=== PATIENT | female | born 1970 | race Caucasian/White ===

== ENCOUNTER → 2018-10-15 | Outpatient (CLI) | payer OTHER, SELFPAY | END | disposition home or self-care (01) | LOC: PSN 09:00 | PROVIDERS: Family Provider Internal Medicine; PCP Internal Medicine; Referring Provider Internal Medicine; Visit Provider Internal Medicine | DX: R00.2 Palpitations (principal) | CPT/HCPCS: 93225; 93226 ==

== ENCOUNTER → 2018-11-10 | Outpatient (CLI) | payer OTHER, SELFPAY ==
[2018-10-27 10:57] VITALS: BMI 18.9
--- NOTE | 2018-11-10 14:59 | ECHOD_ITS ---
Reason For Study: atrial tachycardia Procedure This was a 2D Doppler, Color Flow transthoracic echocardiogram. Exam performed in department. Left Ventricle Normal size and thickness. The estimated ejection fraction is 60 %. No evidence for diastolic dysfunction. No regional wall motion abnormalities noted. Right Ventricle Normal RV size. Normal systolic function. Atria Normal left atrium. Normal right atrium. Mitral Valve There is no mitral valve stenosis. Trivial mitral valve insufficiency. Tricuspid Valve There is no tricuspid stenosis. Trivial tricuspid valve insufficiency. Normal pulmonary artery pressure. Aortic Valve Trisinus/trileaflet aortic valve. There is no aortic stenosis. No aortic valve insufficiency. Pulmonic Valve There is no pulmonic valvular stenosis. No pulmonic valve insufficiency. Great Vessels Normal aortic root. Pericardium/Pleural No pericardial effusion. MMode/2D Measurements & Calculations LVIDd: 4.1 cm IVSd: 0.78 cm Ao root diam: 3.0 cm LVIDs: 1.9 cm LVPWd: 0.83 cm RVDd: 2.9 cm FS: 53.6 % LAV(MOD-bp): 33.5 ml LA A4 area: 15.4 cm2 LA dimension(2D): 2.9 cm LAV(MOD-bp) Indexed: 21.4 ml/m2 LAV(MOD-sp2): 23.9 ml LAV(MOD-sp4): 43.3 ml RA A4 area: 12.3 cm2 Doppler Measurements & Calculations MV E max gumaro: 113.3 cm/sec Lat Peak E' Gumaro: 12.0 cm/sec Med Peak E' Gumaro: 11.3 cm/sec MV A max gumaro: 66.4 cm/sec E/E' lat: 9.4 E/E' med: 10.0 MV E/A: 1.7 Ao V2 max: 122.2 cm/sec LV V1 max: 106.7 cm/sec PA V2 max: 110.6 cm/sec Ao max P.0 mmHg LV V1 max P.6 mmHg TR max gumaro: 198.9 cm/sec TR max P.8 mmHg Interpretation Summary The estimated ejection fraction is 60 %. No evidence for diastolic dysfunction. Ordering Physician: Sina West Referring Physician: Samantha Simons M.D. Performed By: Larisa Gibbons RDCS
== END | disposition home or self-care (01) ==
LOC: CVS 14:58
PROVIDERS: Family Provider Internal Medicine; PCP Internal Medicine; Referring Provider Specialist; Visit Provider Specialist
DX: R00.2 Palpitations (principal)
CPT/HCPCS: 93306

== ENCOUNTER → 2018-12-31 | Outpatient (CLI) | payer OTHER, SELFPAY ==
[2018-11-23 10:54] VITALS: BMI 19.1
== END | disposition home or self-care (01) ==
LOC: PSN 08:37
PROVIDERS: Family Provider Internal Medicine; PCP Internal Medicine; Referring Provider Nurse Practitioner Family; Visit Provider Nurse Practitioner Family
DX: R00.2 Palpitations (principal)
CPT/HCPCS: 93225; 93226

== ENCOUNTER → 2020-12-18 07:12 | Outpatient (CLI) | payer OTHER, SELFPAY ==
[2020-12-07 08:17] VITALS: BMI 19.1
--- NOTE | 2020-12-18 07:14 | BI_ITS ---
MAMMOGRAPHY - BILATERAL SCREENING REASON FOR EXAM: Female, 50 years old. Routine annual screening examination. PERTINENT HISTORY: TECHNIQUE: Digital bilateral breast alexis (3D mammographic acquisition) in the CC and MLO projections. 2-D mediolateral oblique (MLO) and craniocaudad (CC) views of both breasts were obtained. CAD: Full Field Digital Mammography with Computer Added Detection was performed. COMPARISON: Previous mammogram obtained on 05/26/2016 FINDINGS: Breast Composition: Scattered There are no dominant masses or suspicious calcifications. There are some microcalcifications seen in the left breast best noted at 12 o''clock position in best seen on the craniocaudal view and to a lesser extent the MLO view. These calcifications should be further evaluated with a magnified compression spot images in the craniocaudal and MLO view and a true lateral projection.. BI/SCRN MAMM (CAD)W/ALEXIS BILAT IMPRESSION: Significant microcalcifications are noted at 12 o''clock position of the left breast and additional imaging is recommended for further evaluation. (A) ASSESSMENT CATEGORY: BIRADS Category 0: Incomplete. Need additional imaging evaluation. A letter regarding these results will be sent to the patient by the facility within 30 days. Approximately 10% of breast cancers are not detected by mammography. A normal mammogram should not delay biopsy of a clinically suspicious abnormality. [id number] Electronically Signed: Amari Chavez DO at 15:53 EDT Tel , Service support ,
== END ==
PROVIDERS: PCP Internal Medicine; Referring Provider Internal Medicine; Visit Provider Internal Medicine
DX: Z12.31 Encounter for screening mammogram for malignant neoplasm of breast (principal)
CPT/HCPCS: 77063; 77067

== ENCOUNTER → 2020-12-20 09:20 | Outpatient (CLI) | payer OTHER, SELFPAY ==
[2020-12-07 08:17] VITALS: BMI 19.1
--- NOTE | 2020-12-20 09:22 | BI_ITS ---
MAMMOGRAPHY - UNILATERAL DIAGNOSTIC: LEFT BREAST REASON FOR EXAM: Female, 50 years old. LT ABN MAMM PERTINENT HISTORY: Non-contributory. TECHNIQUE: Digital examination. Mediolateral oblique (MLO) and craniocaudad (CC) views of the breast were obtained. CAD: COMPARISON: Previous mammogram obtained on 12/18/2020 FINDINGS: Breast Composition: Heterogeneous Magnified compression spot images of the craniocaudal and MLO retroareolar left breast was performed and shows that the previously noted microcalcifications are no longer seen. Presumably this represented milk of calcium, which disappeared upon compression. No underlying masses or lesions are seen. No other significant abnormalities are identified. BI/DIAG MAMM W/CAD, UNILAT IMPRESSION: Stable unilateral diagnostic mammogram. ASSESSMENT CATEGORY: BIRADS Category 1: Negative. A letter regarding these results will be sent to the patient by the facility within 30 days. FOLLOW-UP RECOMMENDATION: Yearly follow-up mammogram recommended. (A) Approximately 10% of breast cancers are not detected by mammography. A normal mammogram should not delay biopsy of a clinically suspicious abnormality. Electronically Signed: Amari Chavez DO at 11:03 EDT Tel , Service support ,
== END ==
PROVIDERS: PCP Internal Medicine; Referring Provider Internal Medicine; Visit Provider Internal Medicine
DX: R92.8 Other abnormal and inconclusive findings on diagnostic imaging of breast (principal)
CPT/HCPCS: 77065

== ENCOUNTER → 2021-01-01 08:25 | Outpatient (CLI) | payer OTHER, SELFPAY ==
[2020-12-07 08:17] VITALS: BMI 19.1
--- NOTE | 2021-01-01 08:30 | BD_ITS ---
STUDY: DUAL ENERGY X-RAY ABSORPTIOMETRY / DXA REASON FOR EXAM: Female, 50 years old. Z780. Patient is postmenopausal. TECHNIQUE: Bone Mineral Density (BMD) measurements of lumbar spine and bilateral hips were obtained. COMPARISON: None. FINDINGS: Lumbar Spine (L1-L4): g/cm2 (0.629) / T-score (-3.8) / Z-score (-3.1) Findings are suggestive of osteoporosis with a high fracture risk. Left Femur Total: g/cm2 (0.634) / T-score (-2.5) / Z-score (-2.1) Left Femoral Neck: g/cm2 (0.568) / T-score (-2.5) / Z-score (-1.9) Right Femur Total: g/cm2 (0.675) / T-score (-2.2) / Z-score (-1.8) Right Femoral Neck: g/cm2 (0.590) / T-score (-2.3) / Z-score (-1.7) BD/Dexa Bone Density Study IMPRESSION: The patient is considered osteoporotic as outlined below according to World Kelvin Organization (WHO) criteria with a high fracture risk. Reference Information: The T-score is the number of standard deviations above or below the standard which is normal for young adults at their peak bone mineral density. The World Health Organization (WHO) interprets the T-scores as follows: Above -1 Normal bone density Between -1 and -2.5 Osteopenia Equal to / or below -2.5 Osteoporosis As a practical clinical guideline, osteopenia may be graded as follows: Mild -1 through -1.5 Moderate -1.6 through -2.0 Severe -2.1 through -2.4 The Z-score is the number of standard deviations above or below age-matched controls. A Z-score of less than -1.5 would be considered abnormal. References: 1. NIH Osteoporosis and Related Bone Diseases www osteo.org 2. International Society for Clinical Densitometry www iscd.org 3. National Osteoporosis Foundation www nof.org Electronically Signed: Anderson John MD at 13:36 EDT , Service support ,
== END ==
PROVIDERS: PCP Internal Medicine; Referring Provider Internal Medicine; Visit Provider Internal Medicine
DX: Z78.0 Asymptomatic menopausal state (principal)
CPT/HCPCS: 77080

== ENCOUNTER → 2021-04-29 14:05 | Outpatient (CLI) | payer OTHER, SELFPAY | PROVIDERS: PCP Internal Medicine; Visit Provider Family Medicine | DX: Z23 Encounter for immunization (principal) ==

== ENCOUNTER 2021-08-09 10:08 | Outpatient (CLI) | payer BC, SELFPAY ==
[2021-08-09 10:22] LABS: Hematocrit 44.3 % (37-47); Hemoglobin 15.5 g/dL (12.0-15.0); Mean Corpuscular Hgb 31.3 pg (27.0-32.0); Mean Corpuscular Volume 89.3 fL (81-99); Mean Platelet Vol. 10.1 fl (6.2-12.0); Platelet Count 246 K/mm3 (150-450); RBC Distribution Width CV 12.3 % (11.6-14.6); RBC Distribution Width SD 40.4 fl (35.1-43.9); Red Blood Count 4.96 M/mm3 (4.2-5.4); White Blood Count 5.4 K/mm3 (4.4-11.0)
[2021-08-09 10:31] LABS: Erythrocyte Sedimentation Rate 3 mm/hr (0-30)
[2021-08-09 10:54] LABS: ALB/GLOB Ratio 1.5 RATIO (0.9-2.4); AST(SGOT) 13 U/L (15-37); Alanine Aminotransfer ALT/SGPT 18 U/L (13-56); Albumin, Serum 4.3 g/dL (3.2-5.0); Alkaline Phosphatase 80 U/L (45-117); Anion Gap 6 (5-15); BUN 16 mg/dL (7-18); BUN/Creat Ratio 19.5 RATIO (10-20); Calcium,Total 9.5 mg/dL (8.5-10.1); Chloride 107 mmol/L (98-107); Creatinine, Serum 0.82 mg/dL (0.55-1.02); EST Glomerular Filtration Rate 79 mL/min (>60); Est Glom Filt Rate - Afr Amer 95 mL/min (>60); Globulin 2.9 g/dL (2.2-4.2); Glucose 112 mg/dL (74-106); Potassium 3.8 mmol/L (3.5-5.1); Protein, Total 7.2 g/dL (6.4-8.2); Sodium Level 141 mmol/L (136-145)
== END 2021-08-09 23:59 | disposition home or self-care (01) ==
LOC: LABSPEC 10:10
PROVIDERS: PCP Internal Medicine; Visit Provider Internal Medicine
DX: R10.32 Left lower quadrant pain (principal); R10.2 Pelvic and perineal pain
CPT/HCPCS: 80053; 85027; 85652

== ENCOUNTER 2021-08-19 09:17 | Outpatient (CLI) | payer BC, SELFPAY ==
--- NOTE | 2021-08-19 09:20 | US_ITS ---
STUDY: ULTRASOUND OF THE FEMALE PELVIS - COMPLETE REASON FOR EXAM: Female, 51 years old. 3 week history of left pelvic pain. LMP: The patient is postmenopausal. TECHNIQUE: Transabdominal and Transvaginal TECHNICAL QUALITY: Adequate. COMPARISON: None. FINDINGS: The uterus is anteverted and is in a midline position. The uterus measures 6.4 cm x 4.2 cm x 2.8 cm. Focal calcifications are seen in the cervix. The endometrium is thickened and measures 5 mm in thickness, and is fluid distended. There is no demonstrated endometrial mass. There is a 6 mm x 8 mm x 4 mm uterine fibroid. I.U.D. - The patient does not have an I.U.D. The right ovary is non-visualized. The left ovary is visualized. The left ovary measures 2.1 cm x 2 cm x 0.9 cm. There is no left ovarian cyst or ovarian mass. There is no visualized left adnexal mass or complex lesion. There is normal arterial and normal venous vascularity. There is no fluid in the cul-de-sac. The pre void volume of the bladder was 133 ml. US/Pelvic (Non ) IMPRESSION: Thickened endometrium. Small uterine fibroid. Electronically Signed: Anderson John MD at 15:13 EDT ,
--- NOTE | 2021-08-19 09:21 | US_ITS ---
STUDY: ULTRASOUND OF THE FEMALE PELVIS - COMPLETE REASON FOR EXAM: Female, 51 years old. 3 week history of left pelvic pain. LMP: The patient is postmenopausal. TECHNIQUE: Transabdominal and Transvaginal TECHNICAL QUALITY: Adequate. COMPARISON: None. FINDINGS: The uterus is anteverted and is in a midline position. The uterus measures 6.4 cm x 4.2 cm x 2.8 cm. Focal calcifications are seen in the cervix. The endometrium is thickened and measures 5 mm in thickness, and is fluid distended. There is no demonstrated endometrial mass. There is a 6 mm x 8 mm x 4 mm uterine fibroid. I.U.D. - The patient does not have an I.U.D. The right ovary is non-visualized. The left ovary is visualized. The left ovary measures 2.1 cm x 2 cm x 0.9 cm. There is no left ovarian cyst or ovarian mass. There is no visualized left adnexal mass or complex lesion. There is normal arterial and normal venous vascularity. There is no fluid in the cul-de-sac. The pre void volume of the bladder was 133 ml. US/Transvaginal Non- IMPRESSION: Thickened endometrium. Small uterine fibroid. Electronically Signed: Anderson John MD at 15:13 EDT ,
== END 2021-08-19 23:59 | disposition home or self-care (01) ==
LOC: US 09:17
PROVIDERS: PCP Internal Medicine; Referring Provider Internal Medicine; Visit Provider Internal Medicine
DX: R10.2 Pelvic and perineal pain (principal)
CPT/HCPCS: 76830; 76856; 93976

== ENCOUNTER → 2024-02-23 | Outpatient (CLI) | payer BC, SELFPAY ==
[2024-02-23 17:25] LABS: Absolute Lymphocyte Count 1.73 X10^3/uL (0.83-4.51); Absolute Neutrophil Count 4.7 X10^3/uL (2.0-7.7); Basophil# 0.03 X10^3/uL; Basophil% 0.4 % (0-1); Eosinophil# 0.06 X10^3/uL; Eosinophils% 0.9 % (0-5); Hematocrit 42.8 % (37-47); Lymphocyte # 1.73 X10^3/ul (0.83-4.51); Lymphocyte % 24.7 % (19-41); Mean Corp Hgb Conc 32.7 g/dL (32-36); Mean Corpuscular Hgb 29.8 pg (27.0-32.0); Mean Corpuscular Volume 91.1 fL (81-99); Mean Platelet Vol. 10.4 fl (6.2-12.0); Monocyte# 0.46 X10^3/uL; Monocyte% 6.6 % (0-10); NRBC Flagged by Analyzer 0 % (0-5); Neutrophil % 67.1 % (47-70); Platelet Count 261 K/mm3 (150-450); RBC Distribution Width SD 40.1 fl (35.1-43.9)
[2024-02-23 17:44] LABS: ALB/GLOB Ratio 1.3 RATIO (0.9-2.4); AST(SGOT) 16 U/L (15-37); Alanine Aminotransfer ALT/SGPT 17 U/L (13-56); Alkaline Phosphatase 95 U/L (45-117); Anion Gap 7 (5-15); BUN 16 mg/dL (7-18); BUN/Creat Ratio 20.8 RATIO (10-20); Calcium,Total 9.4 mg/dL (8.5-10.1); Chloride 104 mmol/L (98-107); Cholesterol 199 mg/dL (200); Creatinine, Serum 0.77 mg/dL (0.55-1.02); EST Glomerular Filtration Rate 84 mL/min (>60); Est Glom Filt Rate - Afr Amer 101 mL/min (>60); Globulin 3.1 g/dL (2.2-4.2); Glucose 135 mg/dL (74-106); High Density Lipoprotein 58 mg/dL; Potassium 3.8 mmol/L (3.5-5.1); Protein, Total 7.1 g/dL (6.4-8.2); Sodium Level 140 mmol/L (136-145); Triglycerides 124 mg/dL; Very Low Density Lipoprotein 25 mg/dL (5-40)
== END | disposition home or self-care (01) ==
PROVIDERS: PCP Family Medicine; Referring Provider Family Medicine; Visit Provider Family Medicine
DX: Z00.00 Encounter for general adult medical examination without abnormal findings (principal)
CPT/HCPCS: 36415; 80053; 80061; 85025

== ENCOUNTER → 2024-05-25 | Outpatient (CLI) | payer BC, SELFPAY ==
--- NOTE | 2024-05-25 07:47 | BI_ITS ---
MAMMOGRAPHY - BILATERAL SCREENING REASON FOR EXAM: Female, 54 years old. Routine annual screening examination. PERTINENT HISTORY: Non-contributory. TECHNIQUE: Digital bilateral breast alexis (3D mammographic acquisition) in the CC and MLO projections. 2-D mediolateral oblique (MLO) and craniocaudad (CC) views of both breasts were obtained. CAD: Full Field Digital Mammography with Computer Added Detection was performed. COMPARISON: Comparison is made with prior mammogram dated December 18, 2020 and December 20, 2020. FINDINGS: Breast Composition: The breasts are heterogeneously dense, which may obscure small masses. There are no dominant masses or suspicious calcifications. No other significant abnormalities are identified. There has been no significant change since the prior study. BI/SCRN MAMM (CAD)W/ALEXIS BILAT IMPRESSION: Stable bilateral screening mammogram. Yearly follow-up mammogram recommended. (A) ASSESSMENT CATEGORY: BIRADS Category 1: Negative. A letter regarding these results will be sent to the patient by the facility within 30 days. Approximately 10% of breast cancers are not detected by mammography. A normal mammogram should not delay biopsy of a clinically suspicious abnormality. [id number] Electronically Signed: Anderson John MD at 8:50 EST ,
== END | disposition home or self-care (01) ==
LOC: OPBI 07:46
PROVIDERS: PCP Family Medicine; Referring Provider Family Medicine; Visit Provider Family Medicine
DX: Z12.31 Encounter for screening mammogram for malignant neoplasm of breast (principal)
CPT/HCPCS: 77063; 77067

== ENCOUNTER → 2024-12-14 | Outpatient (CLI) | payer BC, SELFPAY ==
[2024-12-14 12:38] LABS: Hematocrit 44.6 % (37-47); Hemoglobin 15.4 g/dL (12.0-15.0); Immature Granulocytes Count 0.010 X10^3/uL (0.0-0.0); Mean Corp Hgb Conc 34.5 g/dL (32-36); Mean Corpuscular Volume 89.2 fL (81-99); Mean Platelet Vol. 10.0 fl (6.2-12.0); NRBC Flagged by Analyzer 0 % (0-5); Platelet Count 264 K/mm3 (150-450); RBC Distribution Width CV 12.2 % (11.6-14.6); RBC Distribution Width SD 39.9 fl (35.1-43.9); Red Blood Count 5.00 M/mm3 (4.2-5.4); White Blood Count 6.2 K/mm3 (4.4-11.0)
[2024-12-14 13:08] LABS: AST(SGOT) 15 U/L (<=31); Alanine Aminotransfer ALT/SGPT 11 U/L (<=34); Albumin, Serum 4.8 g/dL (3.5-5.0); Alkaline Phosphatase 90 U/L (35-104); Anion Gap 15 (5-15); BUN 16 mg/dL (4-19); BUN/Creat Ratio 22.8 RATIO (10-20); Calcium,Total 9.9 mg/dL (7.6-11.0); Carbon Dioxide 22.7 mmol/L (21.0-32.0); Chloride 103 mmol/L (98-108); Globulin 2.5 g/dL (2.2-4.2); Glucose 100 mg/dL (70-99); Potassium 3.7 mmol/L (3.3-5.1)
[2024-12-14 13:13] LABS: CRP < 3.00 mg/L (0.0-3.0)
== END | disposition home or self-care (01) ==
LOC: BFHLAB 11:01
PROVIDERS: PCP Family Medicine; Visit Provider Family Medicine
DX: Z00.00 Encounter for general adult medical examination without abnormal findings (principal); R10.9 Unspecified abdominal pain
CPT/HCPCS: 36415; 80053; 85025; 85652; 86140

== ENCOUNTER → 2024-12-27 | Outpatient (CLI) | payer BC, SELFPAY ==
--- NOTE | 2024-12-27 15:25 | CT_ITS ---
PROCEDURE: ABDOMEN/PELVIS WITH CONTRAST 12/27/2024 REASON FOR EXAM: LEFT LOWER QUADRANT ABDOMINAL TENDERNESS, CHANGE IN BOWEL HABIT TECHNIQUE: ABDOMEN/PELVIS WITH CONTRAST Coronal and Sagittal reconstruction series were provided. CONTRAST: Isovue 300 VOLUME: 98 mL One or more dose reduction techniques were used (e.g., Automated exposure control, adjustment of the mA and/or kV according to patient size, use of iterative reconstruction technique. RADIATION DOSE SUMMARY: CTDlvol: 17 mGy DLP: 343 mGycm COMPARISON: No FINDINGS: Clear lung bases. Normal heart size. Normal gallbladder. Upper abdominal solid organs are unremarkable. No hydronephrosis. Normal bladder. Normal uterus and ovaries. No retroperitoneal or pelvic adenopathy. Nondistended bowel. Normal appendix. Multiple diverticula. No acute large bowel findings. No acute abdominal wall findings. CT/Abdomen/Pelvis WITH Contrast IMPRESSION: No acute findings. Reading Location: [place] [address]
== END | disposition home or self-care (01) ==
LOC: CT 15:20
PROVIDERS: PCP Family Medicine; Referring Provider Family Medicine; Visit Provider Family Medicine
DX: R10.814 Left lower quadrant abdominal tenderness (principal); R19.4 Change in bowel habit
CPT/HCPCS: 74177; Q9967; A4216

== ENCOUNTER 2025-01-10 12:20 | Day surgery (SDC) | payer BC, SELFPAY ==
--- NOTE | 2025-01-09 11:24 | PAT.ANE_ITS ---
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 When Was Last Pacemaker Check QUESTION #4 FULL TEXT: You/Your Family Experience fever (hyperthermia) with Anesthesia Last Oral Intake Last Oral intake: Last Oral Intake NPO since Meds taken in AM with sips of water? Meds patient instructed to take am of surgery PONV PONV - wafer batter mixer: PONV - wafer batter mixer Female Yes 01/09/25 11:13 HX of Motion Sickness No 01/09/25 11:13 HX of N/V After Surgery No 01/09/25 11:13 Non-Smoker Yes 01/09/25 11:13 Duration of Surgery greater No 01/09/25 11:13 than 60 minutes Number of Risk Factors 2 01/09/25 11:13 PONV Score Moderate Risk 01/09/25 11:13 Respiratory Assessment Respiratory Assessment - wafer batter mixer: Respiratory Tract Infection Hx - wafer batter mixer Hx Respiratory Tract Infection No 01/09/25 11:13 STOP Sleep Apnea STOP Sleep Apnea - wafer batter mixer: STOP Sleep Apnea - wafer batter mixer Hx Hypertension No 01/09/25 11:13 Hx Sleep Apnea No 01/09/25 11:13 CPAP BIPAP Do you snore loudly (louder No 01/09/25 11:13 than talking or can be heard Do you often feel tired/ No 01/09/25 11:13 fatigued/ sleepy during daytime? Has anyone observed you stop No 01/09/25 11:13 breathing during sleep? STOP Results Negative 01/09/25 11:13 QUESTION #5 FULL TEXT : Do you snore loudly (louder than talking or can be heard through closed doors)? 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 Specify any problems Hx of Preganancy in last 3 No 01/09/25 11:13 Months Nurse Filling Out Transfusion DSCHRIBER 01/09/25 11:13 & Questions: Date: 01/09/25 01/09/25 11:13 Time: 11:14 01/09/25 11:13 Patient unable to answer at this time (ie. confused, unrespo /Reproduction History /Reproductive History - wafer batter mixer: /Reproductive Hx- wafer batter mixer Hx Now No 01/09/25 11:13 Gestational Age (in weeks): EDC: Hx Hx Para Hx Section SAB No 01/09/25 11:13 PFSH Medical History (Updated 01/09/25 @ 11:17 by Klarissa Harrington) Post-menopausal Wears contact lenses Alcohol use Non-smoker History of echocardiogram Cardiology follow-up encounter Hx of fracture of ankle Palpitations Home Medications ?Medication ?Instructions ?Recorded ?Last Taken ?Type multivitamin (Daily Multi-Vitamin 1 tab PO DAILY 01/09 Unknown History tablet) Allergy/AdvReac Type Severity Reaction Status Date / Time No Known Allergies Allergy Verified 01/09/25 11:12 Family History Grandfather Diabetes Grandmother Hypertension Surgical History (Updated 01/09/25 @ 11:17 by Klarissa Harrington) History of tonsillectomy Social History (Updated 06/06/19 @ 15:[address] Sina West MD) Smoking Status: Never smoker alcohol intake: current alcohol intake frequency: holidays/special occasions o nly substance use type: does not use caffeine: Yes Type: tea Number of servings: 1 Audit: Pertinent Findings Pertinent Findings Echo (EF%) pertinent findings: Echocardiogram performed 11/10/2018: This was performed for atrial tachycardia. Interpretation Summary The estimated ejection fraction is 60 %. No evidence for diastolic dysfunction. Consult pertinent findings: Cardiology note 06/06/2019: The patient was seen in 2019 and after a Holter monitor was placed was found to have short runs of atrial tachycardia. The patient had symptoms of palpitations. She was placed on metoprolol which improved her symptoms and put her atrial tachycardia in remission. She was doing well without any clinical issues. Recommendation Anesthesia Recommendation Anesthesia recommendation: OPTIMIZED for anesthesia
[2025-01-10] VITALS (7 sets, daily range): BP systolic 97–134; BP diastolic 55–94; PULSE 79–95; RESP 14–18; TEMP 36.5–36.9; O2SAT 99–100; BMI 18.3
[2025-01-10] MEDS: Lactated Ringers 1,000 ML 15 ML IV (12:52)
--- NOTE | 2025-01-10 13:30 | COLBX_PTH ---
PATIENT: ANTONY CARBONE LOC: EN U#:[id number] AGE/SX: 54/F ROOM: RE01/10/[address]: Dr. Jac Mchugh DO : 1970 BED: DIS: 01/10/2025 SPEC #: [id number] RECD: 01/10/25 18:16 STATUS: INGE REQ #: [id number] BAHMAN: 01/10/25 13:[address]: Jac Mchugh DEPT: SURGICAL PATHOLOGY RECD BY: Reji Keenan ENTERED: 01/11/25 11:01 SP TYPE: COLON BX OTHR DR: Dr. Taco Aden DO Tissues: A - Cecum, NOS Procedures: Immunohistochemical Stains Surgery Specimen Level IV IHC Stain ADDITIONAL HEADER OPERATION: Colonoscopy, biopsy PRE-OP DIAGNOSIS: Encounter for screening colonoscopy TISSUE SUBMITTED: A- Cecum biopsy MICROSCOPIC DIAGNOSIS A. Cecum, biopsy: Prominent mucosal lymphoid tissue - see note. Note: A reactive process is favored. If clinical suspicion for a lymphoproliferative disorder is high, please contact the laboratory to request further evaluation. MICROSCOPIC DESCRIPTION Slides are reviewed. GROSS DESCRIPTION A. Received in fixative is one container labeled with the patient's name and designated Cecum biopsy. The specimen consists of one irregular fragment of light hightower soft tissue that measures 0.5 cm. The specimen is totally submitted in one cassette. AR 01/11/2025 CPT:03859 ,[id number] ADDENDUM ADDENDUM ADDENDUM ADDENDUM ADDENDUM ADDENDUM ADDENDUM ADDENDUM ADDENDUM ADDENDUM ADDENDUM ADDENDUM ADDENDUM ADDENDUM ADDENDUM ADDENDUM ADDENDUM ADDENDUM ADDENDUM ADDENDUM ADDENDUM ADDENDUM ADDENDUM ADDENDUM ADDENDUM ADDENDUM ADDENDUM ADDENDUM ADDENDUM ADDENDUM ADDENDUM ADDENDUM 03/02/2025 14:31 ADDENDUM 03/02/2025 14:31 ADDENDUM 03/02/2025 14:31 ADDENDUM 03/02/2025 14:31 ADDENDUM 03/02/2025 14:31 This addendum is to report the additional evaluation performed at Dr Mchugh's request: A. IHC performed. There is a mixture of CD3+CD5+ T-lymphocytes and CD20+ B-lymphocytes. CD10 highlights germinal centers and the CD23+ follicular meshworks are maintained. The germinal centers are negative for BCL2 and positive for BCL6. BCL1 is negative. Ki67 proliferative index is appropriately high in the germinal centers and low in the interfollicular zones. NIURKA for kappa and lambda light chains (performed at [facility]) is polytypic with a ratio of approximately 3:2. These findings support the histologic impression of being reactive lymphoid tissue. All matched controls reacted appropriately. These tests were developed and their performance characteristics determined by [facility]. They may not have been cleared or approved by the U.S. Food and Drug Administration. The FDA has determined that such clearance or approval is not necessary. The above immunohistochemical markers and/or special stains have been reviewed by the Pathologist. All controls show appropriate reactivity. (kappa and lambda light chains by NIURKA) ?All immunohistochemistry, in situ hybridization, and histochemical tests were developed by and are performed at the [facility], [address] [place] [address]. All Immunofluorescent (IF)?tests were developed by and are performed at the [facility], [address] [place] [address] ?[id number]. All tests reported here, except those addressing HER2 overexpression as a predictive marker, have not been cleared by or approved by the US Food and Drug Administration (FDA). The laboratory is regulated under CLIA as qualified to perform high-complexity testing. The tests are used for clinical purposes. They should not be regarded as investigational or for research
--- NOTE | 2025-01-10 13:34 | PCM.PRE.AN2 ---
ASA Classification* ASA Classification ASA Classification: 2 Assessment & Plan Anesthesia* Anesthesia Assessment Anesthesia Assessment: Discussed sedation and/or anesthesia options, risks, benefits, and alternatives with patient/parents/legal guardian/POA. Questions invited. The patient/parents/legal guardian/POA seems to understand and agrees to proceed with anesthesia plan. Reviewed the physical assessment, medical history, allergy history and patient home medications list prior to surgery/procedure/anesthetic and documented any changes. Performed airway and anesthesia risk assessments. Anesthesia Type Anesthesia Type: MAC History Source History Obtained from:: Patient and Chart Anesthesia Focused Assessment* Temperature: 98.4 F Pulse Rate: 93 Blood Pressure: 134/94 Respiratory Rate: 18 Pulse Ox: 100 Oxygen Delivery Method: Room Air Airway Assessment Mouth opens: >3 cm Mallampati Score: II Teeth Condition: Caps/Crowns (Patient has 1 crown. It is tight.) Neck Range of motion (ROM): Full ROM Labs Anesthesia Preop lab: CBC WBC 6.2 K/mm3 (4.4-11.0) 12/14/24 11:02 12/14/24 RBC 5.00 M/mm3 (4.2-5.4) 12/14/24 11:02 12/14/24 Hgb 15.4 g/dL (12.0-15.0) H 12/14/24 11:02 12/14/24 Hct 44.6 % (37-47) 12/14/24 11:02 12/14/24 Plt Count 264 K/mm3 (150-450) 12/14/24 11:02 12/14/24 CHEMISTRY Potassium 3.7 mmol/L (3.3-5.1) 12/14/24 11:02 12/14/24 Sodium 141 mmol/L (133-145) 12/14/24 11:02 12/14/24 BUN 16 mg/dL (4-19) 12/14/24 11:02 12/14/24 Creatinine 0.68 mg/dL (0.70-1.20) L 12/14/24 11:02 12/14/24 Glucose 100 mg/dL (70-99) H 12/14/24 11:02 12/14/24 COAG Urine Test Negative Negative 05/28/17 10:20 05/28/17 Pre-Assessment Diagnosis/Proposed Procedure Planned Operative Procedure(s): COLONOSCOPY OA Anesthesia History Anesthesia History - emergency medical services coordinator: Anesthesia History - emergency medical services coordinator Hx Hospitalization No 01/09/25 11:13 Any Problems With Anesthesia No 01/09/25 11:13 Cholinesterase deficiency No 01/09/25 11:13 You/Your Family Experience No 01/09/25 11:13 fever (hyperthermia) with Relationship Recent Exposure to Contagious No 01/10/25 12:37 Disease Does patient have nerve No 01/09/25 11:13 stimulator Patient instructed to have device shut off --Does patient have Pacemaker No 01/10/25 12:37 or ICD? When Was Last Pacemaker Check QUESTION #4 FULL TEXT: You/Your Family Experience fever (hyperthermia) with Anesthesia Last Oral Intake Last Oral intake: Last Oral Intake NPO since 09:00 01/10/25 12:37 Meds taken in AM with sips of No 01/10/25 12:37 water? Meds patient instructed to take am of surgery Any additional information?: Yes NPO since: 09:00 (Patient finished her prep at 9 AM.) Meds taken in AM with sips of water?: No PONV PONV - emergency medical services coordinator: PONV - emergency medical services coordinator Female Yes 01/09/25 11:13 HX of Motion Sickness No 01/09/25 11:13 HX of N/V After Surgery No 01/09/25 11:13 Non-Smoker Yes 01/09/25 11:13 Duration of Surgery greater No 01/09/25 11:13 than 60 minutes Number of Risk Factors 2 01/09/25 11:13 PONV Score Moderate Risk 01/09/25 11:13 Height & Weight Height & Weight: Anesthesia: Height & Weight Height 5 ft 5 in 01/10/25 12:37 Weight: 50 kg 01/10/25 12:37 Body Mass Index (BMI) 18.3 01/10/25 12:37 Respiratory Assessment Respiratory Assessment - emergency medical services coordinator: Respiratory Tract Infection Hx - emergency medical services coordinator Hx Respiratory Tract Infection No 01/09/25 11:13 STOP Sleep Apnea STOP Sleep Apnea - emergency medical services coordinator: STOP Sleep Apnea - emergency medical services coordinator Hx Hypertension No 01/09/25 11:13 Hx Sleep Apnea No 01/09/25 11:13 CPAP BIPAP Do you snore loudly (louder No 01/09/25 11:13 than talking or can be heard Do you often feel tired/ No 01/09/25 11:13 fatigued/ sleepy during daytime? Has anyone observed you stop No 01/09/25 11:13 breathing during sleep? STOP Results Negative 01/09/25 11:13 QUESTION #5 FULL TEXT : Do you snore loudly (louder than talking or can be heard through closed doors)? Tobacco Use History Tobacco Use History - emergency medical services coordinator: Tobacco Use History - emergency medical services coordinator Tobacco Use Smoking Status Never smoker 01/09/25 11:13 Hx Tobacco Use No 01/09/25 11:13 Years Smoking Packs Smoked per Day Smoking Cessation Date was within the last 15 years Hx Smoking Cessation Date Hx Smoking Cessation Counseling Hematologic Medial History Hematologic Hx - emergency medical services coordinator: Hematologic Medical Hx - director talent management Hx of Blood Transfusion No 01/09/25 11:13 Hx of Transfusion in last 3 No 01/09/25 11:13 Months Date of Last Transfusion (if within last 3 months) Ever experience any problems No 01/09/25 11:13 with transfusion(s)? Specify any problems Hx of Preganancy in last 3 No 01/09/25 11:13 Months Nurse Filling Out Transfusion DSCHRIBER 01/09/25 11:13 & Questions: Date: 01/09/25 01/09/25 11:13 Time: 11:14 01/09/25 11:13 Patient unable to answer at this time (ie. confused, unrespo /Reproduction History /Reproductive History - emergency medical services coordinator: /Reproductive Hx- emergency medical services coordinator Hx Now No 01/09/25 11:13 Gestational Age (in weeks): EDC: Hx Hx Para Hx Section SAB No 01/09/25 11:13 Active Medications Active Medications: Current Medications Generic Name Dose Route Start Last Admin Trade Name Freq PRN Reason Stop Dose Admin Lactated Ringer's 1,000 mls @ 15 mls/hr 01/10/25 12:45 01/10/25 12:52 IV 15 mls/hr .Q48H JAILENE Administration PFSH Medical History Post-menopausal Wears contact lenses Alcohol use Non-smoker History of echocardiogram Cardiology follow-up encounter Palpitations Home Medications ?Medication ?Instructions ?Recorded ?Last Taken ?Type multivitamin (Daily Multi-Vitamin 1 tab PO DAILY 01/09/25 Unknown History tablet) Allergy/AdvReac Type Severity Reaction Status Date / Time No Known Allergies Allergy Verified 01/10/25 12:37 Family History Grandfather Diabetes Grandmother Hypertension Surgical History (Updated 01/10/25 @ 13:[address] Benedict Dolan MD) Hx of fracture of ankle History of tonsillectomy Social History Smoking Status: Never smoker alcohol intake: current alcohol intake frequency: holidays/special occasions only substance use type: does not use caffeine: Yes Type: tea Number of servings: 1 Review of Systems (Anesthesia) ROS Narrative System reviewed and no additional complaints, except as documented.
--- NOTE | 2025-01-10 13:47 | PCM.HP.STD ---
[facility] - General General Date of Admission: 01/10/25 Date of Service: 01/10/25 Chief Complaint: Screening colonoscopy HPI Narrative ANTONY CARBONE, is a 54 F who presents today for screening colonoscopy. She never had a colonoscopy in the past. She does not have abdominal pain, constipation or diarrhea. Overall she is in very good health. [facility] Medical History Post-menopausal Wears contact lenses Alcohol use Non-smoker History of echocardiogram Cardiology follow-up encounter Palpitations Home Medications ?Medication ?Instructions ?Recorded ?Last Taken ?Type multivitamin (Daily Multi-Vitamin 1 tab PO DAILY 01/09/25 Unknown History tablet) Allergy/AdvReac Type Severity Reaction Status Date / Time No Known Allergies Allergy Verified 01/10/25 12:37 Family History Grandfather Diabetes Grandmother Hypertension Surgical History Hx of fracture of ankle History of tonsillectomy Social History Smoking Status: Never smoker alcohol intake: current alcohol intake frequency: holidays/special occasions only substance use type: does not use caffeine: Yes Type: tea Number of servings: 1 ROS Constitutional Constitutional: Denies fatigue, fever(s), poor appetite, weight gain or weight loss Gastrointestinal Gastrointestinal: Denies belching, bloating, change in bowel habits, change in stool character, chewing difficulty, coffee ground emesis, constipation, cramping, diarrhea, dyspepsia, dysphagia, early satiety, excessive flatus, fecal incontinence, heartburn, hematemesis, hematochezia, hemorrhoids, loose stools, melena, nausea, odynophagia, rectal bleeding, tenesmus, vomiting or weight changes Vital Signs Vital Signs Vital Signs: 01/10/25 12:37 01/10/25 12:37 01/10/25 13:39 Temperature 98.4 F 98.4 F Temperature Source Temporal Pulse Rate 93 93 Respiratory Rate 18 18 Respiratory Pattern Normal Blood Pressure 134/94 H 134/94 H Blood Pressure Mean 107 Blood Pressure Source Monitor Blood Pressure Position Sitting Blood Pressure Location Left Arm Pulse Ox 100 100 Oxygen Delivery Method Room Air Room Air Weight Weight: 110 lb 3.698 oz Body Mass Index (BMI) 18.3 Physical Exam Const alert, oriented x3, no apparent distress and healthy appearing General Appearance: cooperative GI normal to inspection, nondistended, normoactive bowel sounds, soft to palpation, non-tender and non-distended Percussion: normal to percussion Rectal Exam: deferred Assessment & Plan Assessment/Plan (1) Encounter for screening colonoscopy: PLAN: She was explained alternatives, risk and benefits include not withstanding bleeding, infection, sepsis, perforation, need for surgery . She will have an ASA of 3.
[2025-01-10] MEDS: Lactated Ringers 500 ML IV (13:59)
--- NOTE | 2025-01-10 14:37 | OP.COLON_ITS ---
Patient Name: Rose Marie Cary Procedure Date: 01/10/2025 1:50 PM Date of : 1970 Age: 54 Procedure: Colonoscopy Indications: Screening for colorectal malignant neoplasm Providers: Jac Mchugh DO Referring MD: Taco Aden Medicines: Monitored Anesthesia Care Patient Profile: This is a 54 year old female. Refer to note in patient chart for documentation of history and physical. Last Colonoscopy: none. The patient's first colonoscopy is today. Complications: No immediate complications. Procedure: Pre-Anesthesia Assessment: - Prior to the procedure, a History and Physical was performed, and patient medications and allergies were reviewed. The patient is competent. The risks and benefits of the procedure and the sedation options and risks were discussed with the patient. All questions were answered and informed consent was obtained. Patient identification and proposed procedure were verified by the physician in the pre-procedure area. Mental Status Examination: alert and oriented. Airway Examination: normal oropharyngeal airway and neck mobility. Respiratory Examination: clear to auscultation. CV Examination: normal. ASA Grade Assessment: II - A patient with mild systemic disease. After reviewing the risks and benefits, the patient was deemed in satisfactory condition to undergo the procedure. The anesthesia plan was to use monitored anesthesia care (MAC). Immediately prior to administration of medications, the patient was re-assessed for adequacy to receive sedatives. The heart rate, respiratory rate, oxygen saturations, blood pressure, adequacy of pulmonary ventilation, and response to care were monitored throughout the procedure. The physical status of the patient was re-assessed after the procedure. After I obtained informed consent, the scope was passed under direct vision. Throughout the procedure, the patient's blood pressure, pulse, and oxygen saturations were monitored continuously. The Colonoscope was introduced through the anus and advanced to the cecum, identified by the appendiceal orifice, ileocecal valve and palpation. The colonoscopy was performed with ease. Scope In: 2:05:07 PM Scope Withdrawal Time 0 hours 8 minutes 30 seconds Scope Out: 2:21:16 PM Total Procedure Duration Time 0 hours 16 minutes 9 seconds Findings: The perianal and digital rectal examinations were normal. An area of mildly congested mucosa was found in the cecum. Biopsies were taken with a cold forceps for histology. Verification of patient identification for the specimen was done. Estimated blood loss was minimal. Impression: - Congested mucosa in the cecum. Biopsied. Recommendation: - Discharge patient to home. - Resume previous diet. - Continue present medications. - Repeat colonoscopy in 10 years for screening purposes. Procedure Code(s): --- Professional --- 18528, Colonoscopy, flexible; with biopsy, single or multiple CPT copyright 2021 [employer]. All rights reserved. The codes documented in this report are preliminary and upon medical biller coder review may be revised to meet current compliance requirements. Jac Mchugh DO 01/10/2025 2:37:09 PM This report has been signed electronically. Number of Addenda: 0 Note Initiated On: 01/10/2025 1:50 PM
--- NOTE | 2025-01-10 14:38 | OP.PROVAT_ITS ---
01/10/2025 Taco Aden [address] [place] [address] Re : Colonoscopy procedure for Rose Marie Raeann Dear Dr. Aden This procedure was performed on Friday, January 10, 2025. My impressions and recommendations are as follows: Impressions : - Congested mucosa in the cecum. Biopsied. Recommendations : - Discharge patient to home. - Resume previous diet. - Continue present medications. - Repeat colonoscopy in 10 years for screening purposes. My findings are described in the full procedure note, which is enclosed. If I can be of further assistance, please feel free to contact me at . Sincerely, Jac Mchugh, 01/10/2025 2:37:09 PM This report has been signed electronically.
== END 2025-01-10 15:10 | disposition home or self-care (01) ==
LOC: EN 12:21 → AC 12:23
PROVIDERS: PCP Family Medicine; Referring Provider Family Medicine; Visit Provider Internal Medicine Gastroenterology
PROC: 0DJD8ZZ Inspection of Lower Intestinal Tract, Via Natural or Artificial Opening Endoscopic (ICD-10-PCS; CPT 45378; principal; 2025-01-10 13:25)
DX: Z12.11 Encounter for screening for malignant neoplasm of colon (principal); K63.89 Other specified diseases of intestine
CPT/HCPCS: 45380; 88305